=== PATIENT | male | born 1960 | race Caucasian/White ===

== ENCOUNTER 2019-10-10 08:19 | Emergency (ER) | payer OTHER ==
[2019-10-10] MEDS: GI Cocktail Oral Solution 30 ML PO ONE (08:44)
[2019-10-10] MEDS: Aspirin 81 MG Tab.Chew PO ONE (08:45)
[2019-10-10] MEDS ORDERED: Sodium Chloride 0.9% 10 ML Syringe FLUSH PRN (08:48)
--- NOTE | 2019-10-10 08:48 | EDM.PDOC ---
ED HPI GENERAL MEDICAL PROBLEM - General Stated Complaint: chest pain Time Seen by Provider: 10/10/19 08:29 Source of Information: Reports: Patient History Limitations: Reports: No Limitations - History of Present Illness INITIAL COMMENTS - FREE TEXT/NARRATIVE: Patient comes emergency department today from home with concerns of tightness and pressure in his mid sternum. The patient awoke this morning about 6:00 and is noticed kind of constant pressure tightness right in the mid sternum. It does not radiate anywhere else. He has no shortness of breath or diaphoresis. No cough congestion shortness of breath. No fever no chills. No COVID exposure no COVID concerns. No syncope. No weakness dizziness lightheadedness. No paresthesias. No malaise fatigue. No syncope. No abdominal pain nausea or vomiting. No diaphoresis. Mid-Sternal Chest Pain Score (Numeric/FACES): 6 - Related Data Allergies Allergy/AdvReac Type Severity Reaction Status Date / Time amoxicillin Allergy Rash Verified 10/10/19 09:11 Home Meds: Home Meds Aspirin [Halfprin] 1 tab PO DAILY 08/22/15 [History] Furosemide [Lasix] 20 mg PO DAILY 08/22/15 [History] Ibuprofen [Advil] 200 - 600 mg PO TID PRN 08/22/15 [History] Lisinopril [Prinivil] 5 mg PO DAILY 08/22/15 [History] Simvastatin [Zocor] 20 mg PO DAILY 08/22/15 [History] metFORMIN [Glucophage XR] 500 mg PO DAILY 08/22/15 [History] Past Medical History Cardiovascular History: Reports: High Cholesterol Musculoskeletal History: Endocrine/Metabolic History: Reports: Diabetes, Type II, Obesity/BMI 30+ Dermatologic History: Reports: Other (See Below) Other Dermatologic History: stases ulcer and dermatitis - Past Surgical History GI Surgical History: Reports: Hernia Repair/Other Musculoskeletal Surgical History: Reports: Arthroscopic Knee ED ROS GENERAL - Review of Systems Review Of Systems: Comprehensive ROS is negative, except as noted in HPI. ED EXAM, GENERAL - Physical Exam Exam: See Below Exam Limited By: No Limitations General Appearance: Alert, WD/WN, No Apparent Distress, Obese Eye Exam: Bilateral Eye: EOMI, PERRL Ears: Normal External Exam Nose: Normal Inspection Throat/Mouth: Normal Inspection, Perioral Cyanosis Head: Atraumatic Neck: Normal Inspection, Supple, Non-Tender Respiratory/Chest: No Respiratory Distress, Lungs Clear, Normal Breath Sounds, No Accessory Muscle Use, Chest Non-Tender Cardiovascular: Normal Peripheral Pulses, Regular Rate, Rhythm GI/Abdominal: Normal Bowel Sounds, Soft, Non-Tender (Male) Exam: Deferred Rectal (Males) Exam: Deferred Back Exam: Normal Inspection, Full Range of Motion Extremities: Normal Inspection (normal except for lichenification of bilateral lower extremities. ), Normal Range of Motion, No Pedal Edema, Normal Capillary Refill Neurological: Alert, Oriented, Normal Cognition, Normal Gait, No Motor/Sensory Deficits Psychiatric: Normal Affect, Normal Mood Skin Exam: Warm, Dry, Intact, Normal Color, No Rash EKG INTERPRETATION EKG Date: 10/10/19 Time: 08:19 Rhythm: NSR Rate (Beats/Min): 69 [place]: Normal P-Wave: Present QRS: Normal ST-T: Normal QT: Normal Course - Vital Signs Last Recorded V/S: Last Vital Signs Temp 97.1 F 10/10/19 08:25 Pulse 66 10/10/19 08:25 Resp 16 10/10/19 08:25 BP 127/64 10/10/19 08:25 Pulse Ox 96 10/10/19 08:25 - Orders/Labs/Meds Orders: Active Orders 24 hr Category Date Time Status EKG Documentation Completion [RC] STAT Care 10/10/19 08:48 Active Sodium Chloride 0.9% [Saline Flush] Med 10/10/19 08:48 Active 10 ml FLUSH ASDIRECTED PRN Peripheral IV Insertion Adult [OM.PC] Stat Oth 10/10/19 08:48 Ordered Medication Orders Sodium Chloride (Saline Flush) 10 ml FLUSH ASDIRECTED PRN PRN Reason: Keep Vein Open Labs: Laboratory Tests 10/10/19 10/10/19 10/10/19 Range/Units 08:35 08:35 08:35 WBC 5.7 (4.0-10.0) x10^3/uL RBC 4.53 (4.5-6.0) x10^6/uL Hgb 13.8 L (14.0-18.0) g/dL Hct 40.0 (40.0-52.0) % MCV 88.3 (78.0-93.0) fL MCH 30.5 (26.0-32.0) pg MCHC 34.5 (32.0-36.0) g/dL RDW Coeff of Azeb 13.5 (10.0-15.0) % Plt Count 169 (130-400) x10^3/uL Neut % (Auto) 52.0 (50.0-80.0) % Lymph % (Auto) 32.6 (25.0-50.0) % [place] % (Auto) 12.0 H (2.0-11.0) % Eos % (Auto) 3.2 (0.0-4.0) % Baso % (Auto) 0.2 (0.2-1.2) % Sodium 139 (136-145) mmol/L Potassium 4.0 (3.5-5.1) mmol/L Chloride 101 (98-107) mmol/L Carbon Dioxide 27 (21-32) mmol/L Anion Gap 15.0 (10-20) mmol/L BUN 21 H (7-18) mg/dL Creatinine 1.1 (0.70-1.30) mg/dL Est Cr Clr Drug Dosing TNP Estimated GFR (MDRD) > 60 Glucose 158 H (74-106) mg/dL Calcium 9.0 (8.5-10.1) mg/dL Corrected Calcium 9.24 (8.5-10.1) mg/dL Total Bilirubin 0.8 (0.2-1.0) mg/dL AST 85 H (15-37) U/L ALT 130 H (16-63) U/L Alkaline Phosphatase 66 (46-116) U/L Troponin I < 0.017 (<=0.056) ng/mL Total Protein 7.5 (6.4-8.2) g/dL Albumin 3.7 (3.4-5.0) g/dL Globulin 3.8 Albumin/Globulin Ratio 0.97 Lipase 135 (73-393) U/L Meds: Medications Generic Name Dose Route Start Last Admin Trade Name Freq PRN Reason Stop Dose Admin Sodium Chloride 10 ml 10/10/19 08:48 Saline Flush FLUSH ASDIRECTED PRN Keep Vein Open Discontinued Medications Generic Name Dose Route Start Last Admin Trade Name Freq PRN Reason Stop Dose Admin Al Hydroxide/Mg Hydroxide 30 ml 10/10/19 08:38 10/10/19 08:44 Gi Cocktail PO 10/10/19 08:39 30 ml ONETIME ONE Administration Aspirin 324 mg 10/10/19 08:38 10/10/19 08:45 Aspirin PO 10/10/19 08:39 324 mg ONETIME ONE Administration - Re-Assessments/Exams Free Text/Narrative Re-Assessment/Exam: 10/10/19 09:05 Initially given 324 aspirin GI Cocktail. with improvement of the pressure to the chest. 10/10/19 09:44 The chest pressure tightness sensation in his chest completely resolved after the GI cocktail. He does feel much better and back to normal. His EKG and labs are rather unremarkable other than a mild AST ALT with an ALT being higher. He has had no diarrhea. No right upper quadrant. No pain with eating. I am unable to compare his liver enzymes to any previous ones as he has not had them here or with his primary care provider. His white count is normal. He feels much better after the GI cocktail. We will discharge him home at this time. We did discuss starting a PPI although this is an isolated situation of indigestion and he has not struggled with that so we will do see what happens at this time. He will follow-up with primary care next week to recheck his liver enzymes. If anything new or worse he is to recheck. If his pain does not resolve with Maalox or Mylanta is to recheck immediately he is aware of this. He is comfortable with the discharge instructions and his questions are answered. Departure - Departure Time of Disposition: 09:40 Disposition: Home, Self-Care 01 Clinical Impression: Non-cardiac chest pain, Indigestion, Elevated LFTs Instructions: Nonspecific Chest Pain, Adult, [id number], Indigestion, [id number] Additional Instructions: Try OTC MAALOX or Mylanta for acute symptoms. If the chest symptoms do not resolve or new or different symptoms develop recheck at that time. Stay away from spicy fatty rich foods. Return to the ED if new or worsening symptoms. Follow up with PCP beginning of next week for recheck of labs and evaluation. Sepsis Event Note (ED) - Focused Exam Vital Signs: Vital Signs Temp Pulse Resp BP Pulse Ox 10/10/19 08:25 97.1 F 66 16 127/64 96 - My Orders Last 24 Hours: My Active Orders 10/10/19 08:48 EKG Documentation Completion [RC] STAT Sodium Chloride 0.9% [Saline Flush] 10 ml FLUSH ASDIRECTED PRN Peripheral IV Insertion Adult [OM.PC] Stat - Assessment/Plan Last 24 Hours: My Active Orders 10/10/19 08:48 EKG Documentation Completion [RC] STAT Sodium Chloride 0.9% [Saline Flush] 10 ml FLUSH ASDIRECTED PRN Peripheral IV Insertion Adult [OM.PC] Stat Assessment:: Non-cardiac chest pain most likely Indigestion resolved with GI cocktail. Indigestion. Elevated LFTs no reference point to compare. Could be transient. Not a drinker. No abd pain. PCP to follow. Plan: Try OTC MAALOX or Mylanta for acute symptoms. If the chest symptoms do not resolve or new or different symptoms develop recheck at that time. Stay away from spicy fatty rich foods. Return to the ED if new or worsening symptoms. Follow up with PCP beginning of next week for recheck of labs and evaluation.
[2019-10-10 09:13] LABS: CHLORIDE,CL 101 mmol/L (98-107); SODIUM,NA 139 mmol/L (136-145)
[2019-10-10 09:16] VITALS: BP 127/64; PULSE 66
--- NOTE | 2019-10-10 09:23 | CR ---
[id number] RAD/RAD Chest PA And Lateral EXAM: RAD Chest PA And Lateral CLINICAL DATA: SHORTNESS OF BREATH CHEST PAIN COMPARISON: NO PREVIOUS SIMILAR EXAM IS AVAILABLE. FINDINGS: The lungs are clear. The cardiomediastinal contour is normal. The regional bones and soft tissues are unremarkable. IMPRESSION: NO ACUTE PROCESS. Robin Wayne MD 10/10/19 0921 Thank you for allowing us to participate in the care of your patient.
== END 2019-10-10 09:50 | disposition home or self-care (01) ==
LOC: VM.ED 08:19
DX: R07.89 Other chest pain (principal); K30 Functional dyspepsia; R79.89 Other specified abnormal findings of blood chemistry; E78.00 Pure hypercholesterolemia, unspecified; E11.9 Type 2 diabetes mellitus without complications; E66.9 Obesity, unspecified; Z79.899 Other long term (current) drug therapy; Z79.84 Long term (current) use of oral hypoglycemic drugs; Z68.42 Body mass index [BMI] 45.0-49.9, adult; Z79.82 Long term (current) use of aspirin; Z88.1 Allergy status to other antibiotic agents
CPT/HCPCS: 71046; 80053; 83690; 84484; 85025; 93005; 99285; A9270; 93010; 99284

== ENCOUNTER 2020-09-16 21:40 | Emergency (ER) | payer OTHER ==
--- NOTE | 2020-09-16 22:05 | EDM.PDOC ---
ED HPI GENERAL MEDICAL PROBLEM - General Stated Complaint: bleeding from leg Time Seen by Provider: 09/16/20 21:45 Source of Information: Reports: Patient History Limitations: Reports: No Limitations - History of Present Illness INITIAL COMMENTS - FREE TEXT/NARRATIVE: Patient comes emergency department today from home with concerns of bleeding from his left lower medial aspect of the tib-fib region. This patient last night when he was at home picked off a scab on the medial aspect of his left tib-fib region. He had quite a bit of a what he relates is spurting bleeding at that time. He put a dressing on it as well as pressure and got the bleeding to stop. This morning when he got in the shower he remove the dressing and scrub the area aggressively and it started to bleed again. He then again change the dressing this evening when he took it off it started to bleed once again. He is unsure of why it is bleeding. Comes to the emergency department with concerns of this bleeding area. He denies any anticoagulation. Denies any trauma to this lower extremity. He has had no recent falls trauma injury or surgery or procedure to the left lower extremity. He denies any paresthesia left lower extremity. Does have a history of diabetes he reports.Has a history of hypertension congestive heart failure as well as hyper cholesteremia per the patient. - Related Data Allergies Allergy/AdvReac Type Severity Reaction Status Date / Time amoxicillin Allergy Rash Verified 09/16/20 21:48 Home Meds: Home Meds Furosemide [Lasix] 20 mg PO DAILY 08/22/15 [History] Ibuprofen [Advil] 200 - 600 mg PO TID PRN 08/22/15 [History] Lisinopril [Prinivil] 5 mg PO DAILY 08/22/15 [History] Simvastatin [Zocor] 20 mg PO DAILY 08/22/15 [History] metFORMIN [Glucophage XR] 500 mg PO BIDMEALS 08/22/15 [History] Acetaminophen [Tylenol Arthritis] 650 mg PO QID 10/10/19 [History] Fluticasone Propionate 2 spray NASBOTH DAILY 10/10/19 [History] Past Medical History Cardiovascular History: Reports: High Cholesterol Musculoskeletal History: Endocrine/Metabolic History: Reports: Diabetes, Type II, Obesity/BMI 30+ Dermatologic History: Reports: Other (See Below) Other Dermatologic History: stases ulcer and dermatitis - Past Surgical History GI Surgical History: Reports: Hernia Repair/Other Musculoskeletal Surgical History: Reports: Arthroscopic Knee Review of Systems - Review of Systems Review Of Systems: Comprehensive ROS is negative, except as noted in HPI. ED EXAM, GENERAL - Physical Exam Exam: See Below Exam Limited By: No Limitations General Appearance: Alert, WD/WN, No Apparent Distress Respiratory/Chest: No Respiratory Distress, Lungs Clear Cardiovascular: Normal Peripheral Pulses, Regular Rate, Rhythm Peripheral Pulses: 1+: Posterior Tibial (L), Posterior Tibial (R), Dorsalis Pedis (L), Dorsalis Pedis (R), 2+: Radial (L), Radial (R), Popliteal (L), Popliteal (R) GI/Abdominal: Normal Bowel Sounds, Soft, Non-Tender Extremities: Other (There is no site of erythema induration swelling or worsening ulceration. No sign of cellulitis.). No: Normal Inspection (Bilateral lower extremities with stasis dermatitis bilaterally. He also has what appears to be some peripheral vascular disease with varicosities. Equal bilaterally. Under the dressing on the left medial distal tib-fib there is a almost pinpoint ulceration over a varicose veins. No bleeding) Neurological: Alert, Oriented, Normal Cognition, No Motor/Sensory Deficits Psychiatric: Normal Affect, Normal Mood Skin Exam: Warm, Dry, Intact, Normal Color Lymphatic: No Adenopathy Course - Vital Signs Last Recorded V/S: Last Vital Signs Temp 97 F 09/16/20 22:06 Pulse 71 09/16/20 22:06 Resp 16 09/16/20 22:06 BP 140/75 09/16/20 22:06 Pulse Ox 95 09/16/20 22:06 - Re-Assessments/Exams Free Text/Narrative Re-Assessment/Exam: 09/17/20 01:05 Left lower extremity after his dressing was removed identified a very small pinhole type ulceration and a varicose vein. There is no active bleeding. There is no sign of infection or other sites of trauma. The area was cleansed with chlorhexidine and sterile saline. There was no recurrence of the bleeding. This pinhole is right over the site of a varicose vein as well as surrounded by stasis dermatitis. The bleeding that he had most likely when he removed the scab on his leg because some bleeding from the varicose vein. Removing the dressing multiple times allowed for it to rebleed. There is no active bleeding at this time. It is well controlled. Telfa dressing and Coban was applied to the area. I think it would be best course of action at this time to continue the Coban dressing for at least 24 if not 48 hours to allow for appropriate clot formation over the site of the varicose vein. Anything new or worse he is to return. He is understanding this and his questions are answered. Departure - Departure Time of Disposition: 22:01 Disposition: Home, Self-Care 01 Clinical Impression: Ruptured varicose vein - Discharge Information Referrals: Steve Minaya PA-C [Primary Care Provider] - Forms: ED Department Discharge Additional Instructions: Keep the dressing in place at minimum of 24 hours. 48hrs would be best. Then after the mild pressure dressing has been removed keep a bandaid with pressure on the area. Do not pick off the scab. Watch for signs of infection. Return to the ED if new or worsening symptoms. Follow up with PCP as needed for further concerns. Sepsis Event Note (ED) - Focused Exam Vital Signs: Vital Signs Temp Pulse Resp BP Pulse Ox 09/16/20 22:06 97 F 71 16 140/75 95
[2020-09-16 22:07] VITALS: BP 140/75; PULSE 71
== END 2020-09-16 22:22 | disposition home or self-care (01) ==
LOC: VM.ED 21:40
DX: I83.92 Asymptomatic varicose veins of left lower extremity (principal); E78.00 Pure hypercholesterolemia, unspecified; E11.9 Type 2 diabetes mellitus without complications; E66.9 Obesity, unspecified; Z68.41 Body mass index [BMI] 40.0-44.9, adult; Z88.0 Allergy status to penicillin; Z79.84 Long term (current) use of oral hypoglycemic drugs; Z79.899 Other long term (current) drug therapy
CPT/HCPCS: 99283; 99284

== ENCOUNTER 2020-10-19 19:10 | Emergency (ER) | payer OTHER ==
[2020-10-19] MEDS ORDERED: Sodium Chloride 0.9% 10 ML Syringe FLUSH PRN (19:49)
[2020-10-19] MEDS ORDERED: Ondansetron 4 MG/2 ML SDV IVPUSH ONE (19:49)
[2020-10-19] MEDS ORDERED: Morphine 4 MG/ML Syringe IVPUSH ONE (19:49)
[2020-10-19 20:16] LABS: PTT,PARTIAL THROMBOPLSTIN TIME 22.7 SEC (25.6-32.8)
[2020-10-19 20:19] LABS: ANION GAP 9.8 mmol/L (5-15); CHLORIDE,CL 104 mmol/L (98-107); SODIUM,NA 137 mmol/L (136-145)
--- NOTE | 2020-10-19 22:37 | EDM.PDOC ---
ED HPI GENERAL MEDICAL PROBLEM - General Stated Complaint: LEFT SIDED ABDOMINAL PAIN Time Seen by Provider: 10/19/20 19:15 Source of Information: Reports: Patient History Limitations: Reports: No Limitations - History of Present Illness INITIAL COMMENTS - FREE TEXT/NARRATIVE: Pt. presents to ER with complaints of L sided abdominal pain for the past several days. Pt. states that he has not been experiencing any fever or chills. Pt. denies ever having pain like this in the past. He has not been experiencing any current nausea or vomiting. No diarrhea. Denies any recent trauma. Pt. states that he is also experiencing some low back pain, but states that he drove back to [place] from [place] today. He states that they just got back to [place] a couple hours ago. - Related Data Allergies Allergy/AdvReac Type Severity Reaction Status Date / Time amoxicillin Allergy Rash Verified 09/16/20 21:48 Home Meds: Home Meds Furosemide [Lasix] 20 mg PO DAILY 08/22/15 [History] Ibuprofen [Advil] 200 - 600 mg PO TID PRN 08/22/15 [History] Lisinopril [Prinivil] 5 mg PO DAILY 08/22/15 [History] Simvastatin [Zocor] 20 mg PO DAILY 08/22/15 [History] metFORMIN [Glucophage XR] 500 mg PO BIDMEALS 08/22/15 [History] Acetaminophen [Tylenol Arthritis] 650 mg PO QID 10/10/19 [History] Fluticasone Propionate 2 spray NASBOTH DAILY 10/10/19 [History] Past Medical History Cardiovascular History: Reports: High Cholesterol Musculoskeletal History: Endocrine/Metabolic History: Reports: Diabetes, Type II, Obesity/BMI 30+ Dermatologic History: Reports: Other (See Below) Other Dermatologic History: stases ulcer and dermatitis - Past Surgical History GI Surgical History: Reports: Hernia Repair/Other Musculoskeletal Surgical History: Reports: Arthroscopic Knee ED ROS GENERAL - Review of Systems Review Of Systems: See Below Constitutional: Reports: No Symptoms. Denies: Fever, Chills HEENT: Reports: No Symptoms Respiratory: Reports: No Symptoms Cardiovascular: Reports: No Symptoms Endocrine: Reports: No Symptoms GI/Abdominal: Reports: Abdominal Pain : Reports: Flank Pain Musculoskeletal: Reports: No Symptoms Skin: Reports: No Symptoms Neurological: Reports: No Symptoms Psychiatric: Reports: No Symptoms Hematologic/Lymphatic: Reports: No Symptoms Immunologic: Reports: No Symptoms ED EXAM, GENERAL - Physical Exam Exam: See Below Exam Limited By: No Limitations General Appearance: Alert, WD/WN, No Apparent Distress Respiratory/Chest: No Respiratory Distress, Lungs Clear, Normal Breath Sounds, No Accessory Muscle Use, Chest Non-Tender Cardiovascular: Normal Peripheral Pulses, Regular Rate, Rhythm, No JVD, No Murmur, No Rub GI/Abdominal: Soft, Non-Tender, No Distention, No Mass (Male) Exam: Deferred Rectal (Males) Exam: Deferred Back Exam: Normal Inspection, Full Range of Motion Extremities: Normal Inspection, Normal Range of Motion, Non-Tender, No Pedal Edema, Normal Capillary Refill Neurological: Alert, Oriented, CN II-XII Intact, Normal Cognition, Normal Gait, Normal Reflexes, No Motor/Sensory Deficits Course - Orders/Labs/Meds Orders: Active Orders 24 hr Category Date Time Status Abdomen Pelvis wo Cont [CT] Stat Exams 10/19/20 20:49 Taken Sodium Chloride 0.9% [Saline Flush] Med 10/19/20 19:49 Active 10 ml FLUSH ASDIRECTED PRN Tamsulosin [Flomax] Med 10/19/20 23:15 Active 0.4 mg PO DAILY Peripheral IV Insertion Adult [OM.PC] Routine Oth 10/19/20 19:49 Ordered Medication Orders Sodium Chloride (Sodium Chloride 0.9% 10 Ml Syringe) 10 ml FLUSH ASDIRECTED PRN PRN Reason: Keep Vein Open Tamsulosin HCl (Tamsulosin 0.4 Mg Cap.Er) 0.4 mg PO DAILY DAMIEN Labs: Laboratory Tests 10/19/20 10/19/20 10/19/20 Range/Units 19:57 19:57 19:57 WBC 9.0 (4.0-10.0) x10^3/uL RBC 4.32 L (4.5-6.0) x10^6/uL Hgb 13.7 L (14.0-18.0) g/dL Hct 38.0 L (40.0-52.0) % MCV 88.0 (78.0-93.0) fL MCH 31.7 (26.0-32.0) pg MCHC 36.1 H (32.0-36.0) g/dL RDW Coeff of Azeb 13.3 (10.0-15.0) % Plt Count 163 (130-400) x10^3/uL Immature Gran % (Auto) 0.10 (0.00-0.43) % Neut % (Auto) 65.3 (50.0-80.0) % Lymph % (Auto) 22.8 L (25.0-50.0) % [place] % (Auto) 10.0 (2.0-11.0) % Eos % (Auto) 1.6 (0.0-4.0) % Baso % (Auto) 0.2 (0.2-1.2) % Neut # (Auto) 5.9 (1.8-7.7) x10^3/uL Lymph # (Auto) 2.1 (1.0-4.8) x10^3/uL [place] # (Auto) 0.9 H (0.0-0.8) x10^3/uL Eos # (Auto) 0.1 (0.0-0.5) x10^3/uL Baso # (Auto) 0.0 (0.0-0.2) x10^3/uL Immature Gran # (Auto) 0.01 (0.00-0.07) x10^3/uL PT 10.7 (9.9-12.5) SEC INR 1.0 L (2.0-3.5) APTT 22.7 L (25.6-32.8) SEC Sodium 137 (136-145) mmol/L Potassium 3.8 (3.5-5.1) mmol/L Chloride 104 (98-107) mmol/L Carbon Dioxide 27 (21-32) mmol/L Anion Gap 9.8 (5-15) mmol/L BUN 20 H (7-18) mg/dL Creatinine 1.5 H (0.70-1.30) mg/dL Est Cr Clr Drug Dosing TNP Estimated GFR (MDRD) 48 Glucose 123 H (70-99) mg/dL Calcium 8.8 (8.5-10.1) mg/dL Corrected Calcium 9.2 (8.5-10.1) mg/dL Phosphorus 3.0 (2.6-4.7) mg/dL Magnesium 2.2 (1.8-2.4) mg/dL Total Bilirubin 0.8 (0.2-1.0) mg/dL AST 32 (15-37) U/L ALT 46 (16-63) U/L Alkaline Phosphatase 60 (46-116) U/L C-Reactive Protein 1.5 H (<=0.9) mg/dL Total Protein 7.0 (6.4-8.2) g/dL Albumin 3.5 (3.4-5.0) g/dL Globulin 3.5 Albumin/Globulin Ratio 1.00 Urine Color (YELLOW) Urine Appearance (CLEAR) Urine pH (5.0-8.0) Ur Specific Justice Urine Protein (NEGATIVE) mg/dL Urine Glucose (UA) (NEGATIVE) mg/dL Urine Ketones (NEGATIVE) mg/dL Urine Occult Blood (NEGATIVE) Urine Nitrite (NEGATIVE) Urine Bilirubin (NEGATIVE) Urine Urobilinogen (0.2) EU/dL Ur Leukocyte Esterase (NEGATIVE) Urine RBC (NOT SEEN) /HPF Urine WBC (NOT SEEN) /HPF Ur Squamous Epith Cells (NOT SEEN) /HPF Urine Bacteria (NOT SEEN) /HPF Urine Mucus (NOT SEEN) /LPF 10/19/20 Range/Units 20:35 WBC (4.0-10.0) x10^3/uL RBC (4.5-6.0) x10^6/uL Hgb (14.0-18.0) g/dL Hct (40.0-52.0) % MCV (78.0-93.0) fL MCH (26.0-32.0) pg MCHC (32.0-36.0) g/dL RDW Coeff of Azeb (10.0-15.0) % Plt Count (130-400) x10^3/uL Immature Gran % (Auto) (0.00-0.43) % Neut % (Auto) (50.0-80.0) % Lymph % (Auto) (25.0-50.0) % [place] % (Auto) (2.0-11.0) % Eos % (Auto) (0.0-4.0) % Baso % (Auto) (0.2-1.2) % Neut # (Auto) (1.8-7.7) x10^3/uL Lymph # (Auto) (1.0-4.8) x10^3/uL [place] # (Auto) (0.0-0.8) x10^3/uL Eos # (Auto) (0.0-0.5) x10^3/uL Baso # (Auto) (0.0-0.2) x10^3/uL Immature Gran # (Auto) (0.00-0.07) x10^3/uL PT (9.9-12.5) SEC INR (2.0-3.5) APTT (25.6-32.8) SEC Sodium (136-145) mmol/L Potassium (3.5-5.1) mmol/L Chloride (98-107) mmol/L Carbon Dioxide (21-32) mmol/L Anion Gap (5-15) mmol/L BUN (7-18) mg/dL Creatinine (0.70-1.30) mg/dL Est Cr Clr Drug Dosing Estimated GFR (MDRD) Glucose (70-99) mg/dL Calcium (8.5-10.1) mg/dL Corrected Calcium (8.5-10.1) mg/dL Phosphorus (2.6-4.7) mg/dL Magnesium (1.8-2.4) mg/dL Total Bilirubin (0.2-1.0) mg/dL AST (15-37) U/L ALT (16-63) U/L Alkaline Phosphatase (46-116) U/L C-Reactive Protein (<=0.9) mg/dL Total Protein (6.4-8.2) g/dL Albumin (3.4-5.0) g/dL Globulin Albumin/Globulin Ratio Urine Color Yellow (YELLOW) Urine Appearance Slightly cloudy H (CLEAR) Urine pH 6.0 (5.0-8.0) Ur Specific [place] 1.020 Urine Protein Negative (NEGATIVE) mg/dL Urine Glucose (UA) Negative (NEGATIVE) mg/dL Urine Ketones Negative (NEGATIVE) mg/dL Urine Occult Blood Large H (NEGATIVE) Urine Nitrite Negative (NEGATIVE) Urine Bilirubin Negative (NEGATIVE) Urine Urobilinogen 0.2 (0.2) EU/dL Ur Leukocyte Esterase Negative (NEGATIVE) Urine RBC 20-30 H (NOT SEEN) /HPF Urine WBC 0-5 (NOT SEEN) /HPF Ur Squamous Epith Cells Not seen (NOT SEEN) /HPF Urine Bacteria Rare (NOT SEEN) /HPF Urine Mucus Rare H (NOT SEEN) /LPF Meds: Medications Generic Name Dose Route Start Last Admin Trade Name Freevgeny PRN Reason Stop Dose Admin Sodium Chloride 10 ml 10/19/20 19:49 Sodium Chloride 0.9% 10 Ml Syringe FLUSH ASDIRECTED PRN Keep Vein Open Tamsulosin HCl 0.4 mg 10/19/20 23:15 Tamsulosin 0.4 Mg Cap.Er PO DAILY DAMIEN Discontinued Medications Generic Name Dose Route Start Last Admin Trade Name Freq PRN Reason Stop Dose Admin Hydrocodone Bitart/Acetaminophen 2 packet 10/19/20 22:48 Take Home: Acetaminophen/Hydrocodone 325-10 Mg, 5 Tab Pack PO 10/19/20 22:49 ONETIME ONE Morphine Sulfate 4 mg 10/19/20 19:49 Morphine 4 Mg/Ml Syringe IVPUSH 10/19/20 19:50 ONETIME ONE Ondansetron HCl 4 mg 10/19/20 19:49 Ondansetron 4 Mg/2 Ml Sdv IVPUSH 10/19/20 19:50 ONETIME ONE Tamsulosin HCl 0.4 mg 10/19/20 22:49 Tamsulosin 0.4 Mg Cap.Er PO 10/19/20 22:50 ONETIME ONE - Radiology Interpretation Free Text/Narrative:: See attached. 8 x 3 mm stone noted in proximal ureter with some perirenal inflammatory signs. Departure - Departure Time of Disposition: 23:11 Disposition: Home, Self-Care 01 Clinical Impression: Kidney stone - Discharge Information Instructions: Acetaminophen; Hydrocodone tablets or capsules, Renal Colic, [id number], Tamsulosin capsules Referrals: Steve Minaya PA-C [Primary Care Provider] - Additional Instructions: [place] 10/325mg 1 every 4-6 hours as needed for pain Flomax 0.4mg 1 tab daily to assist in passing the stone Strain urine. Collect stones, and bring to clinic for analysis. Contact [facility] ([phone]) on Tuesday to set up an appointment at the request of Dr. Lucio. Return to ER if you have pain that is not helped by the oral pain medication, or if you have fever or other worrisome signs or symptoms. - Problem List Review Problem List Initiated/Reviewed/Updated: Yes - My Orders Last 24 Hours: My Active Orders 10/19/20 19:49 Sodium Chloride 0.9% [Saline Flush] 10 ml FLUSH ASDIRECTED PRN Peripheral IV Insertion Adult [OM.PC] Routine 10/19/20 20:49 Abdomen Pelvis wo Cont [CT] Stat 10/19/20 23:15 Tamsulosin [Flomax] 0.4 mg PO DAILY - Assessment/Plan Last 24 Hours: My Active Orders 10/19/20 19:49 Sodium Chloride 0.9% [Saline Flush] 10 ml FLUSH ASDIRECTED PRN Peripheral IV Insertion Adult [OM.PC] Routine 10/19/20 20:49 Abdomen Pelvis wo Cont [CT] Stat 10/19/20 23:15 Tamsulosin [Flomax] 0.4 mg PO DAILY Plan: [place] 10/325mg 1 every 4-6 hours as needed for pain Flomax 0.4mg 1 tab daily to assist in passing the stone Strain urine. Collect stones, and bring to clinic for analysis. Contact [facility] ([phone]) on Tuesday to set up an appointment at the request of Dr. Lucio. Return to ER if you have pain that is not helped by the oral pain medication, or if you have fever or other worrisome signs or symptoms.
[2020-10-19] MEDS ORDERED: Take Home: Acetaminophen/HYDROcodone 325-10 MG, 5 Tab Pack PO ONE (22:48)
[2020-10-19] MEDS ORDERED: Tamsulosin 0.4 MG Cap.ER PO ONE (22:49)
[2020-10-19] MEDS ORDERED: Tamsulosin 0.4 MG Cap.ER PO SCH (23:15)
[2020-10-20 01:48] VITALS: BP 136/73; PULSE 69
--- NOTE | 2020-10-20 10:23 | CT ---
[id number] CT/CT Abdomen Pelvis WO IV EXAM: CT Abdomen Pelvis WO IV CLINICAL DATA: HEMATURIA, LLQ ABD PAIN X2 DAYS COMPARISON STUDY: None. FINDINGS: Lung bases are clear. 3 mm stone within the proximal 3rd of the left ureter resulting in mild left hydronephrosis. No other stones are identified. The liver, spleen, gallbladder, pancreas, adrenal glands and right kidney are unremarkable. No bowel obstruction or inflammation. No lymphadenopathy, free fluid, or pneumoperitoneum. Scattered changes of spondylosis the spine. No fracture or osseous lesion. IMPRESSION: 1. 3 mm stone within the proximal 3rd of the left ureter resulting in mild left hydronephrosis. Mert Weir DO 10/20/20 1021 Thank you for allowing us to participate in the care of your patient.
== END 2020-10-19 23:30 | disposition home or self-care (01) ==
LOC: VM.ED 19:10
DX: N13.2 Hydronephrosis with renal and ureteral calculous obstruction (principal); E78.00 Pure hypercholesterolemia, unspecified; E11.9 Type 2 diabetes mellitus without complications; E66.9 Obesity, unspecified; Z68.41 Body mass index [BMI] 40.0-44.9, adult; Z88.0 Allergy status to penicillin; Z79.84 Long term (current) use of oral hypoglycemic drugs
CPT/HCPCS: 74176; 80053; 81001; 83735; 84100; 85025; 85610; 85730; 86140; 96374; 96375; 99284; 99284-25; A9270-GY; J2270; J2405